=== PATIENT | male | born 1960 | race Caucasian/White ===

== ENCOUNTER 2017-09-15 07:08 | Emergency (ER) | payer OTHER ==
[2017-09-15 08:08] LABS: ADD MAN DIFF? NO
[2017-09-15 08:24] LABS: BASOPHILS % 0.2 % (0.0-2.0); EOSINOPHILS # 0.1 10^3/ul (0.0-0.5); EOSINOPHILS % 0.8 % (0.0-7.0); HEMATOCRIT 43.5 % (42.0-52.0); LYMPHOCYTES # 1.9 10^3/ul (0.8-2.9); LYMPHOCYTES % 22.1 % (15.0-51.0); MEAN CORPUSCULAR HEMOGLOBIN 30.3 pg (29.0-33.0); MEAN CORPUSCULAR HGB CONC 34.5 g/dl (32.0-37.0); MEAN CORPUSCULAR VOLUME 87.9 fl (82.0-101.0); MEAN PLATELET VOLUME 10.3 fl (7.4-10.4); MONOCYTE # 0.7 10^3/ul (0.3-0.9); MONOCYTES % 8.6 % (0.0-11.0); NEUTROPHIL # 5.7 10^3/ul (1.6-7.5); NEUTROPHILS % 67.9 % (39.0-77.0); PLATELET COUNT 282 10^3/UL (140-415); RED BLOOD COUNT 4.95 10^6/ul (4.70-6.10); RED CELL DISTRIBUTION WIDTH 12.5 % (11.5-14.5)
[2017-09-15 08:24] LABS: WHITE BLOOD COUNT 8.5 10^3/ul (4.8-10.8)
[2017-09-15 08:33] LABS: ALANINE AMINOTRANSFERASE 37 IU/L (13-69); ALBUMIN 4.3 g/dl (3.3-4.9); ALBUMIN/GLOBULIN RATIO 1.26; ALKALINE PHOSPHATASE 117 IU/L (42-121); ANION GAP 18 (8-16); ASPARTATE AMINO TRANSFERASE 19 IU/L (15-46); BILIRUBIN,INDIRECT 0.4 mg/dl (0-1.1); BILIRUBIN,TOTAL 0.4 mg/dl (0.2-1.3); BLOOD UREA NITROGEN 15 mg/dl (7-20); CARBON DIOXIDE 25 mmol/L (21-31); CHLORIDE 107 mmol/L (97-110); CREATININE 0.92 mg/dl (0.61-1.24); GLUCOSE 100 mg/dl (70-220); LIPASE 59 U/L (23-300); POTASSIUM 4.1 mmol/L (3.5-5.1); SODIUM 146 mmol/L (135-144); TOTAL PROTEIN 7.7 g/dl (6.1-8.1)
[2017-09-15] MEDS: morphine 2 MG INJ IV (08:36)
[2017-09-15] MEDS: ONDANSETRON 4 MG INJ IV (08:36)
[2017-09-15] MEDS: SOD CHLORIDE 0.9% 1,000 ML IV (08:36)
[2017-09-15 08:44] LABS: TROPONIN-I < 0.012 ng/ml (0.00-0.12)
[2017-09-15 09:43] LABS: ADD UMIC NO; UR ASCORBIC ACID NEGATIVE (NEGATIVE); UR BILIRUBIN (Dip) NEGATIVE (NEGATIVE); UR BLOOD (Dip) NEGATIVE (NEGATIVE); UR CLARITY CLEAR (CLEAR); UR COLOR YELLOW (YELLOW); UR GLUCOSE (Dip) NEGATIVE (NEGATIVE); UR KETONES (Dip) NEGATIVE (NEGATIVE); UR LEUKOCYTE ESTERASE (Dip) NEGATIVE Leu/ul (NEGATIVE); UR NITRITE (Dip) NEGATIVE (NEGATIVE); UR SPECIFIC GRAVITY (Dip) 1.028 (1.003-1.030); UR TOTAL PROTEIN (Dip) NEGATIVE (NEGATIVE); UR UROBILINOGEN (Dip) NEGATIVE (NEGATIVE)
[2017-09-15] MEDS: LOPERAMIDE 2 MG CAP PO (10:46)
== END 2017-09-15 11:20 | disposition home or self-care (01) ==
LOC: E/R 07:08
DX: N20.0 Calculus of kidney (principal); R19.7 Diarrhea, unspecified; I25.810 Atherosclerosis of coronary artery bypass graft(s) without angina pectoris; N28.89 Other specified disorders of kidney and ureter; Z87.891 Personal history of nicotine dependence; Z79.82 Long term (current) use of aspirin
CPT/HCPCS: 36415; 74176; 80053; 81003; 83690; 84484; 85025; 93005; 96374; 99285-25

== ENCOUNTER 2017-12-19 02:53 | Emergency (ER) | payer OTHER | END 2017-12-19 05:23 | disposition home or self-care (01) | LOC: FTE 02:53 | DX: M71.561 Other bursitis, not elsewhere classified, right knee (principal); Z79.82 Long term (current) use of aspirin; Z87.891 Personal history of nicotine dependence; Z95.1 Presence of aortocoronary bypass graft | CPT/HCPCS: 73564; 99283-25 ==

== ENCOUNTER 2018-06-26 09:52 | Emergency (ER) | payer OTHER | END 2018-06-26 11:00 | disposition home or self-care (01) | LOC: FTE 09:52 | DX: L30.9 Dermatitis, unspecified (principal); Z79.82 Long term (current) use of aspirin; Z87.891 Personal history of nicotine dependence; Z95.1 Presence of aortocoronary bypass graft | CPT/HCPCS: 99282 ==

== ENCOUNTER 2018-08-16 15:17 | Emergency (ER) | payer OTHER ==
[2018-08-16] MEDS: ACETAMINOPHEN 325 MG TAB PO (18:54)
[2018-08-16] MEDS: IBUPROFEN 600 MG TAB PO (18:54)
[2018-08-16] MEDS: OSELTAMIVIR 75 MG CAP PO (18:55)
== END 2018-08-16 20:03 | disposition home or self-care (01) ==
LOC: FTE 15:17
DX: J10.1 Influenza due to other identified influenza virus with other respiratory manifestations (principal); Z87.891 Personal history of nicotine dependence; Z79.82 Long term (current) use of aspirin
CPT/HCPCS: 87400; 99283